=== PATIENT | male | born 1960 | race Caucasian/White ===

== ENCOUNTER 2019-01-15 16:30 | Emergency (ER) | payer MEDICAID, SELFPAY ==
[2019-01-15 16:31] VITALS: BP 153/102; PULSE 103; RESP 16; TEMP 36.5; O2SAT 98; BMI 26.8
--- NOTE | 2019-01-15 16:45 | ED.RN ---
sitter at bedside with pt for 1:1 obs
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
[2019-01-15 18:21] LABS: Amphetamine Urine VISTA NEGATIVE (<1000 ng/mL); Barbiturate Urine VISTA NEGATIVE (< 200 ng/mL); Benzodiazepine Urine VISTA NEGATIVE (< 200 ng/mL); Cocaine Urine VISTA NEGATIVE (< 300 ng/mL); Ecstacy Urine VISTA NEGATIVE (< 500 ng/mL); Methadone Urine VISTA NEGATIVE (< 300 ng/mL); PCP Urine VISTA NEGATIVE (< 25 ng/mL); THC Urine VISTA NEGATIVE (< 50 ng/mL); Vista UDS pH Range 6
[2019-01-15 18:36] LABS: Hematocrit 43.8 % (40-54); Hemoglobin 15.5 g/dl (13.0-16.5); Mean Corp Hgb Conc 35.4 g/gl (32-36); Mean Corpuscular Hgb 30.1 pg (27.0-32.0); RBC Distribution Width CV 12.9 % (11.6-14.6); RBC Distribution Width SD 39.6 fl (35.1-43.9); Red Blood Count 5.15 M/mm3 (4.6-6.2); White Blood Count 8.7 K/mm3 (4.4-11.0)
[2019-01-15 18:37] LABS: Absolute Lymphocyte Count 1.46 X10^3/ul (0.83-4.51); Absolute Neutrophil Count 6.2 X10^3/uL (2.0-7.7); Basophil# 0.05 X10^3/uL; Basophil% 0.6 % (0-1); Eosinophil# 0.38 X10^3/uL; Eosinophils% 4.4 % (0-5); Lymphocyte # 1.46 X10^3/ul (4.0); Lymphocyte % 16.8 % (19-41); Mean Platelet Vol. 9.9 fl (6.2-12.0); Monocyte# 0.62 X10^3/uL; Monocyte% 7.1 % (0-10); Neutrophil # 6.19 X10^3/uL (2.7-7.7); POSITIVE COUNT NO; POSITIVE DIFFERENTIAL NO; POSITIVE MORPHOLOGY NO; Platelet Count 247 K/mm3 (150-450)
[2019-01-15 18:43] LABS: Anion Gap 5 (5-15); BUN 20 mg/dL (7-18); BUN/Creat Ratio 17.1 RATIO (10-20); Calcium,Total 8.8 mg/dL (8.5-10.1); Chloride 108 mmol/L (98-107); Creatinine, Serum 1.17 mg/dL (0.70-1.30); EST Glomerular Filtration Rate 68 mL/min (>60); Est Glom Filt Rate - Afr Amer 83 mL/min (>60); Estimated Creatinine Clearance 76.46 ml/min; Glucose 103 mg/dL (74-106); Potassium 4.1 mmol/L (3.5-5.1); Sodium Level 138 mmol/L (136-145)
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
[2019-01-15 19:43] LABS: Alcohol, Blood (Medical)-Serum < 3.0 mg/dL
[2019-01-15 20:00] VITALS: BP 140/102; PULSE 90; RESP 16; O2SAT 97
[2019-01-15 21:00] VITALS: RESP 15
[2019-01-15] MEDS: LORazepam 1 MG Tablet PO (21:24)
--- NOTE | 2019-01-15 21:53 | ED.RN ---
CALLED [facility], [facility] AND THEY CANT TRANSPORT THIS PT TONIGHT.
--- NOTE | 2019-01-15 21:56 | ED.RN ---
[facility] COMING TO TRANSPORT THIS PT AT 0600.
[2019-01-15 22:00] VITALS: RESP 17
[2019-01-15 23:00] VITALS: RESP 14
[2019-01-16] VITALS (7 sets, daily range): BP systolic 112–120; BP diastolic 78–85; PULSE 59–73; RESP 14–17; TEMP 37.3; O2SAT 97–99
== END 2019-01-16 06:28 ==
PROVIDERS: Emergency Provider Emergency Medicine
DX: Z04.1 Encounter for examination and observation following transport accident (principal); F33.9 Major depressive disorder, recurrent, unspecified; R45.851 Suicidal ideations; F43.10 Post-traumatic stress disorder, unspecified; F41.9 Anxiety disorder, unspecified; Z79.899 Other long term (current) drug therapy
CPT/HCPCS: 80048; 80307; 80320; 85025; 99285; G0480